=== PATIENT | female | born 1970 | race American Indian/Alaskan Native ===

== ENCOUNTER 2021-04-25 01:12 | Emergency (ER) | payer SELFPAY ==
[2021-04-25] MEDS ORDERED: ASPIRIN 325 MG TAB PO ONE (01:23)
[2021-04-25 01:24] VITALS: BP 117/85
[2021-04-25 01:52] LABS: Basophils % (Auto) 0.7 % (0.0-1.8); Eosinophils % (Auto) 0.2 % (0.0-4.3); Hematocrit 38.4 % (30.3-42.9); Lymphocytes # (Auto) 0.9 K/mm3 (1.2-5.4); Lymphocytes % (Auto) 23.2 % (13.4-35.0); Mean Corpuscular HGB Conc 34 % (30-34); Mean Corpuscular Volume 89 fl (79-97); Monocytes # (Auto) 0.4 K/mm3 (0.0-0.8); Monocytes % (Auto) 11.3 % (0.0-7.3); Platelet Count 273 K/mm3 (140-440); Red Blood Count 4.32 M/mm3 (3.65-5.03); Red Cell Distribution Width 13.6 % (13.2-15.2)
--- NOTE | 2021-04-25 02:06 | XRay Report ---
CHEST 2 VIEWS INDICATION: chestpain. COMPARISON: None. FINDINGS: Support devices: None. Heart: Within normal limits. Lungs/Pleura: No acute air space or interstitial disease. No significant pleural effusion. IMPRESSION: No acute findings. Signer Name: Mark Forrester MD Signed: 04/25/2021 2:01 AM Workstation Name: [id number]
[2021-04-25 02:13] LABS: Alanine Aminotransferase 8 units/L (7-56); Blood Urea Nitrogen 12 mg/dL (7-17); Calcium 10.1 mg/dL (8.4-10.2); Hemolysis Index 3
[2021-04-25 02:14] LABS: BUN/Creatinine Ratio 17
--- NOTE | 2021-04-25 10:24 | Emergency Department Report ---
ED Chest Pain HPI - General Chief Complaint: Chest Pain Stated Complaint: SHOULDER AND BACK PAIN PUI?: No Time Seen by Provider: 04/25/21 10:23 Source: patient Mode of arrival: Stretcher Limitations: No Limitations - History of Present Illness Initial Comments: Patient presented with left shoulder pain that radiated into the left chest. The started a week ago and acutely worsened over the last 1 to 2 days. Pain is described as a throbbing sensation in the left shoulder that radiates up into the left chest. It is not worsened by exertion. It is not worse with inspiration. It is not worse with movement. She denies any recent trauma. There has been no cough or congestion. She denies numbness or tingling in the arms or legs. Patient does not feel short of breath, nauseated, or diaphoretic. She came in because she did not know what was going on and it "scared her." She is never had symptoms like this before. She has no right-sided symptoms. There is no abdominal tenderness or pain. - Related Data Previous Rx's Medication Instructions Recorded Last Taken Type Ibuprofen [Motrin 600 MG tab] 600 mg PO Q8H PRN #20 tablet 04/25/21 Unknown Rx Allergies Allergy/AdvReac Type Severity Reaction Status Date / Time No Known Allergies Allergy Unverified 04/25/21 01:22 Heart Score - HEART Score History: Slightly suspicious EKG: Normal Age: 45-65 Risk factors: No known risk factors Troponin: < normal limit HEART Score: 1 - EKG Read Time Time EKG Completed: :22 EKG Read Time: 10:30 - Critical Actions Critical Actions: 0-3 pts:0.9-1.7%risk of adverse cardiac event.Candidate for discharge ED Review of Systems ROS: Stated complaint: SHOULDER AND BACK PAIN Other details as noted in HPI Comment: All other systems reviewed and negative Constitutional: denies: chills, fever Eyes: denies: eye pain ENT: denies: throat pain Respiratory: denies: cough Cardiovascular: as per HPI Endocrine: denies: increased thirst, increased urine Gastrointestinal: denies: abdominal pain Genitourinary: denies: dysuria Musculoskeletal: denies: back pain Skin: denies: rash Neurological: denies: headache ED Past Medical Hx - Past Medical History Previous Medical History?: No Hx Hypertension: No Hx CVA: No Hx Heart Attack/AMI: No - Surgical History Past Surgical History?: Yes - Social History Smoking Status: Current Every Day Smoker Substance Use Type: None - Medications Home Medications: Home Medications Medication Instructions Recorded Confirmed Last Taken Type Ibuprofen [Motrin 600 MG tab] 600 mg PO Q8H PRN #20 tablet 04/25/21 Unknown Rx ED Physical Exam - General Limitations: No Limitations General appearance: alert, in no apparent distress - Head Head exam: Present: normocephalic - Eye Eye exam: Present: normal appearance, EOMI - ENT ENT exam: Present: normal orophraynx - Neck Neck exam: Present: normal inspection, full ROM - Respiratory Respiratory exam: Present: normal lung sounds bilaterally. Absent: respiratory distress - Cardiovascular Cardiovascular Exam: Present: regular rate, normal rhythm - GI/Abdominal GI/Abdominal exam: Present: soft. Absent: tenderness - Extremities Exam Extremities exam: Present: full ROM, normal capillary refill - Back Exam Back exam: Absent: CVA tenderness (R), CVA tenderness (L) - Neurological Exam Neurological exam: Present: alert, altered - Psychiatric Psychiatric exam: Present: normal affect, normal mood - Skin Skin exam: Present: warm, dry - Other Other exam information: Patient has normal range of motion evaluation of left shoulder. There is no tenderness with palpation of the left scapula or in her trapezius area. Patient has no crepitus. There is good range of motion. There is good deltoid sensation. ED Course Vital Signs 04/25/21 01:16 Temperature 99.1 F Pulse Rate 85 Respiratory 18 Rate Blood Pressure 117/85 O2 Sat by Pulse 98 Oximetry - Reevaluation(s) Reevaluation #1: 04/25/21 10:38 Patient was seen in all of her laboratory studies were reviewed. She has no ACS risk factors. Heart score is low. She has a troponin that has been negative x2. Patient has no pleuritic component of pain. I do not believe this represents pulmonary embolism. Chest x-ray failed to demonstrate pneumonia or pneumothorax. Patient does not have a wide mediastinum or pulse deficit to suggest aortic dissection. Etiology for this pain is unclear. Patient will treat symptomatically and referred to outpatient follow-up ROBERT score - Robert Score Age > 65: (0) No Aspirin use within the Past 7 Days: (0) No 3 or more CAD Risk Factors: (0) No 2 or more Angina events in past 24 hrs: (0) No Known CAD with more than 50% Stenosis: (0) No Elevated Cardiac Markers: (0) No ST Deviation Greater than 0.5mm: (0) No ROBERT Score: 0 ED Medical Decision Making - Lab Data Result diagrams: 04/25/21 01:36 04/25/21 01:36 - EKG Data -: EKG Interpreted by Me EKG shows normal: sinus rhythm, intervals, QRS complexes, ST-T waves - EKG Data Interpretation: no acute changes, normal EKG Critical Care Time: No Critical care attestation.: If time is entered above; I have spent that time in minutes in the direct care of this critically ill patient, excluding procedure time. ED Disposition Clinical Impression: Left-sided chest pain Left shoulder pain Qualifiers: Chronicity: acute Qualified Code(s): M25.512 - Pain in left shoulder Disposition: 01 HOME / SELF CARE / HOMELESS Is pt being admited?: No Does the pt Need Aspirin: No Condition: Stable Instructions: Shoulder Pain, How to Use Cold Therapy, [id number], Nonspecific Chest Pain, Adult Additional Instructions: Try ice. Limit lifting. Follow-up with your regular doctor for repeat evaluation and further evaluation. Prescriptions: Ibuprofen [Motrin 600 MG tab] 600 mg PO Q8H PRN #20 tablet PRN Reason: Pain Referrals: PRIMARY CARE, [Primary Care Provider] - 3-5 Days
--- NOTE | 2021-04-28 14:04 | Electrocardiograph Report ---
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
== END 2021-04-25 11:00 | disposition home or self-care (01) ==
LOC: ED 01:12
DX: M25.512 Pain in left shoulder (principal); R07.89 Other chest pain; F17.200 Nicotine dependence, unspecified, uncomplicated; Z79.899 Other long term (current) drug therapy
CPT/HCPCS: 36415; 71046; 80053; 84484; 85025; 93005